=== PATIENT | female | born 1970 | race Two or more races ===

== ENCOUNTER 2018-09-14 01:30 | Emergency (ER) | payer OTHER ==
[~2018-09-14] VITALS: Ht 152.4 cm; Wt 81.6 kg
[~2018-09-14 01:30] MED LIST: DESPEC-DM TABL1 EACH PO; FLONASE16 G1; PROVENTIL3 ML/2.5 M; SINGULAIR10 MG; ZITHROMAX500 MG PO
[2018-09-14] MEDS ORDERED: SYMBICORT 80/10.2 GM (01:39)
[2018-09-14] MEDS ORDERED: PRILOSEC10 MG (01:40)
[2018-09-14] MEDS ORDERED: ORPHENADRINE C100 MG PO (03:34)
[2018-09-14] MEDS ORDERED: KETO10TA2 PO (03:34)
== END 2018-09-14 04:13 | disposition home or self-care (01) ==
LOC: ER 01:30
DX: M25.551 Pain in right hip (principal); M79.651 Pain in right thigh

== ENCOUNTER 2019-04-01 06:41 | Emergency (ER) | payer OTHER ==
[~2019-04-01] VITALS: Ht 152.4 cm; Wt 81.6 kg
[~2019-04-01 06:41] MED LIST changes: +KETO10TA2 PO; +ORPHENADRINE C100 MG PO; +PRILOSEC10 MG; +SYMBICORT 80/10.2 GM
== END 2019-04-01 10:18 | disposition home or self-care (01) ==
LOC: ER 06:41
DX: G44.009 Cluster headache syndrome, unspecified, not intractable (principal)

== ENCOUNTER 2019-04-30 07:02 | Emergency (ER) | payer OTHER ==
[~2019-04-30] VITALS: Ht 152.4 cm; Wt 81.6 kg
[2019-04-30] MEDS ORDERED: NAPROXEN500 MG PO (11:27)
[2019-04-30] MEDS ORDERED: ZITHROMAX500 MG PO (11:27)
== END 2019-04-30 11:36 | disposition home or self-care (01) ==
LOC: ER 07:02
DX: R53.81 Other malaise (principal); B96.0 Mycoplasma pneumoniae [M. pneumoniae] as the cause of diseases classified elsewhere

== ENCOUNTER 2020-03-17 05:29 | Emergency (ER) | payer OTHER ==
[~2020-03-17] VITALS: Ht 152.4 cm; Wt 81.6 kg
[~2020-03-17 05:29] MED LIST changes: +NAPROXEN500 MG PO
== END 2020-03-17 12:24 | disposition home or self-care (01) ==
LOC: ER 05:29
DX: G43.809 Other migraine, not intractable, without status migrainosus (principal); R04.0 Epistaxis; Z20.822 Contact with and (suspected) exposure to COVID-19

== ENCOUNTER 2020-07-04 | Outpatient (CLI) | payer OTHER | END 2020-07-04 10:41 | disposition home or self-care (01) | LOC: PPH VACUNA | DX: Z23 Encounter for immunization (principal) ==

== ENCOUNTER 2020-08-03 08:00 | Outpatient (CLI) | payer OTHER | END 2020-08-03 08:30 | disposition home or self-care (01) | LOC: PPH VACUNA 08:00 | DX: Z23 Encounter for immunization (principal) ==

== ENCOUNTER 2022-04-27 17:14 | Emergency (ER) | payer OTHER ==
[~2022-04-27] VITALS: Ht 152.4 cm; Wt 81.6 kg
== END 2022-04-27 18:21 | disposition home or self-care (01) ==
LOC: ER 17:14
DX: G43.909 Migraine, unspecified, not intractable, without status migrainosus (principal); Z88.8 Allergy status to other drugs, medicaments and biological substances; Z88.0 Allergy status to penicillin; Z91.013 Allergy to seafood

== ENCOUNTER 2022-07-13 17:22 | Emergency (ER) | payer OTHER ==
[~2022-07-13] VITALS: Ht 152.4 cm; Wt 81.6 kg
== END 2022-07-13 18:18 | disposition home or self-care (01) ==
LOC: ER 17:22
DX: G44.89 Other headache syndrome (principal); M79.604 Pain in right leg; Z88.0 Allergy status to penicillin; Z91.041 Radiographic dye allergy status; Z91.013 Allergy to seafood

== ENCOUNTER 2024-08-10 10:04 | Emergency (ER) | payer OTHER ==
[~2024-08-10] VITALS: Ht 160 cm; Wt 78.0 kg
[2024-08-10] MEDS ORDERED: ONDANSETRON HCL 2 MG/ML VIAL IM ONE (12:00)
[2024-08-10] MEDS ORDERED: FAMOtidine 10 MG/ML (4ML VIAL) IV ONE (12:00)
[2024-08-10] MEDS ORDERED: CETIRIZINE HCL 5 MG/5 ML ML PO ONE (12:00)
[2024-08-10] MEDS ORDERED: BENZONATATE 200 MG CAPSULE PO ONE (12:00)
[2024-08-10] MEDS ORDERED: ONDANSETRON HCL 2 MG/ML VIAL ONE (12:48)
[2024-08-10] MEDS ORDERED: FAMOTIDINE/PF 20 MG/2 ML VIAL ONE (12:49)
[2024-08-10] MEDS ORDERED: CETIRIZINE HCL 5MG/5ML BLIST.PACK PO ONE (12:49)
[2024-08-10 13:38] LABS: BASO % 0.5 % (0.1-1.2); EOS # 0.09 (0.04-0.54); EOS % 1.4 % (0.7-7.0); HEMATOCRIT 34.6 % (34.1-44.9); HEMOGLOBIN 11.1 g/dL (11.2-15.7); LYMPH # 0.99 (1.18-3.74); LYMPH % 15.4 % (19.3-53.1); MONO # 0.43 (0.24-0.82); MONO % 6.7 % (4.7-12.5); NEUT # 4.88 (1.56-6.13); NEUT % 75.8 % (34.0-71.1); PLATELET COUNT 241 K/uL (163-369); RED BLOOD COUNT 3.83 M/uL (3.93-5.22); RED CELL DISTRIBUTION WIDTH 14.4 % (11.6-14.4)
[2024-08-10 14:32] LABS: COVID-19 AG NEGATIVE (NEGATIVE)
[2024-08-10 14:33] LABS: INFLUENZA A AG NEGATIVE (NEGATIVE); INFLUENZA B AG POSITIVE (NEGATIVE)
[2024-08-10] MEDS ORDERED: OSEL75CA PO (14:35)
[2024-08-10] MEDS ORDERED: PROTONIX40 MG PO (14:35)
== END 2024-08-10 14:40 | disposition home or self-care (01) ==
LOC: ER 10:04
PROVIDERS: General Practice
DX: J10.1 Influenza due to other identified influenza virus with other respiratory manifestations (principal); Z20.822 Contact with and (suspected) exposure to COVID-19; Z88.0 Allergy status to penicillin; Z91.013 Allergy to seafood; Z91.041 Radiographic dye allergy status

== ENCOUNTER 2024-10-27 10:04 | Emergency (ER) | payer OTHER ==
[~2024-10-27] VITALS: Ht 152.4 cm; Wt 77.1 kg
[~2024-10-27 10:04] MED LIST changes: +OSEL75CA PO; +PROTONIX40 MG PO
[2024-10-27 10:25] VITALS: O2SAT 98
[2024-10-27 12:22] LABS: BASO % 0.9 % (0.1-1.2); EOS # 0.28 (0.04-0.54); EOS % 3.7 % (0.7-7.0); LYMPH # 2.62 (1.18-3.74); LYMPH % 34.2 % (19.3-53.1); MEAN PLATELET VOLUME 11.90 fl (9.4-12.4); MONO # 0.52 (0.24-0.82); MONO % 6.8 % (4.7-12.5); NEUT # 4.14 (1.56-6.13); NEUT % 54.1 % (34.0-71.1); RED CELL DISTRIBUTION WIDTH 14.1 % (11.6-14.4)
[2024-10-27 12:55] LABS: ALT/SGPT 24.0 U/L (12-78); AST/SGOT 18.0 U/L (15-37); BILIRUBIN TOTAL 0.17 mg/dL (0.3-1.2); BUN CREA RATIO 34.0 (7.0-25.0); CREATININE SERUM 0.61 mg/dL (0.55-1.02); GFR 102.21; GLOBULINA 3.9 G/DL (2.4-3.5); GLUCOSE FASTING 91.0 mg/dL (65-100); OSMOLALITY SERUM 291.0 MOSM/KG (275-295)
[2024-10-27] MEDS ORDERED: BUTALB-ASPIRIN1 EACH PO (13:28)
[2024-10-27] MEDS ORDERED: BUTALB/ACETAMINOPHEN/CAFFEINE 1 TAB TABLET PO ONE (13:30)
[2024-10-27 14:15] VITALS: BP 120/65
== END 2024-10-27 14:16 | disposition home or self-care (01) ==
LOC: ER 10:04
PROVIDERS: Preventive Medicine Public Health & General Preventive Medicine
DX: G43.909 Migraine, unspecified, not intractable, without status migrainosus (principal); Z88.0 Allergy status to penicillin; Z91.013 Allergy to seafood; Z91.041 Radiographic dye allergy status

== ENCOUNTER 2024-11-19 11:23 | Emergency (ER) | payer OTHER ==
[~2024-11-19] VITALS: Ht 165.1 cm; Wt 68.0 kg
[~2024-11-19 11:23] MED LIST changes: +BUTALB-ASPIRIN1 EACH PO
== END 2024-11-19 13:32 | disposition home or self-care (01) ==
LOC: ER 11:23
DX: T78.40XA Allergy, unspecified, initial encounter (principal); Z88.0 Allergy status to penicillin; Z91.013 Allergy to seafood; Z91.041 Radiographic dye allergy status